=== PATIENT | female | born 1970 | race Caucasian/White ===

== ENCOUNTER 2016-12-09 15:54 | Emergency (ER) | payer OTHER ==
[~2016-12-09 15:54] MED LIST: Silver Nitrate Applicator Each ONE
[2016-12-09] MEDS ORDERED: Silver Nitrate Applicator Each TOP ONE (15:55)
[2016-12-09 16:06] VITALS: BP 126/78
--- NOTE | 2016-12-09 16:10 | EDM.PDOC ---
ED HPI Skin/Rash - General Chief Complaint: Laceration Stated Complaint: laceration Time Seen by Provider: 12/09/16 16:05 Source: Reports: Patient History Limitations: Reports: No limitations - History of Present Illness INITIAL COMMENTS - FREE TEXT/NARRATIVE: This patient is a 46 year old female that presents to the ER. Patient reports that she was using a slicer when she cut her right 4th digit today. She reports an avulsed area that that is not repairable that will not stop bleeding. There is partially missing nail of this digit. She reports applying direct pressure without success. Pulses +2, cap refill < 2sec, sensory/motor function intact. Neurovascular intact. Symptom Onset Date: 12/09/16 Symptom Onset Time: 12:30 Timing: Reports: still present Location, Skin: Reports: upper extremity, right Severity: mild Place of Occurrence: home Associated Symptoms: Reports: no other symptoms. Denies: confusion, headaches, seizure, shortness of breath, syncope, weakness, chest pain, cough, sputum, fever/chills, diaphoresis, malaise, loss of appetite, nausea/vomiting, rash - Related Data Allergies Allergy/AdvReac Type Severity Reaction Status Date / Time codeine Allergy Vomiting Verified 12/09/16 16:07 Penicillins Allergy Rash Verified 12/09/16 16:07 Home Meds: Ambulatory Orders Medication Instructions Recorded Confirmed Hydrochlorothiazide/Lisinopril 0.5 tab PO DAILY 12/09/16 12/09/16 [Lisinopril-HCTZ 20-25 MG] ED ROS GENERAL - Review of Systems Review Of Systems: See Below Constitutional: Reports: no symptoms HEENT: Reports: No symptoms Respiratory: Reports: no symptoms Cardiovascular: Reports: No symptoms Endocrine: Reports: no symptoms GI/Abdominal: Reports: No symptoms : Reports: no symptoms Musculoskeletal: Reports: no symptoms Skin: Reports: wound (Right ) Neurological: Reports: no symptoms Psychiatric: Reports: No symptoms Hematologic/Lymphatic: Reports: no symptoms Immunologic: Reports: no symptoms ED EXAM, SKIN/RASH Exam: See Below Exam Limited By: No limitations General Appearance: alert, WD/WN, no apparent distress Respiratory/Chest: no respiratory distress Cardiovascular: normal peripheral pulses Peripheral Pulses: 2+: radial (R) Extremities: normal range of motion, non-tender, no pedal edema, normal capillary refill Neurological: alert, oriented Psychiatric: normal affect, normal mood Skin: Warm, Dry, Normal color, No rash, Wound/incision Location, Skin: upper extremity, right Course - Vital Signs Last Recorded V/S: Last Vital Signs Temp 98.5 F 12/09/16 15:56 Pulse 90 12/09/16 15:56 Resp 20 12/09/16 15:56 BP 126/78 12/09/16 15:56 Pulse Ox 97 12/09/16 15:56 - Orders/Labs/Meds Meds: Medications Discontinued Medications Generic Name Dose Route Start Last Admin Trade Name Diana PRN Reason Stop Dose Admin Silver Nitrate Confirm 12/09/16 15:53 12/09/16 16:55 Silver Nitrate Administered 12/09/16 15:54 Not Given Dose 3 each .ROUTE .STK-MED ONE Silver Nitrate 3 each 12/09/16 15:55 12/09/16 15:58 Silver Nitrate TOP 12/09/16 15:56 3 each ONETIME ONE Administration - Re-Assessments/Exams Free Text/Narrative Re-Assessment/Exam: 12/09/16 16:28 Silver nitrate stick was used, this did slow bleeding, but not completely stop it. I then used Surgicil and put 2x2, then coban wrap. Bleeding controlled. Will discharge. Departure - Departure Time of Disposition: 16:20 Disposition: Home, Self-Care 01 Condition: good Clinical Impression: Avulsion, skin Instructions: Nail Bed Injury, [id number] Referrals: PCP,Unobtain [Primary Care Provider] - Forms: ED Department Discharge Additional Instructions: Followup with your primary care provider Return to the ER for worsening of condition or any emergent concerns If bleeding occurs, apply direct pressure May removed after 24 hours, if bleeding starts again, reapply dressing and apply pressure. - Assessment/Plan Plan: PLEASE SEE RN NOTE FOR PFSH.
== END 2016-12-09 16:35 | disposition home or self-care (01) ==
LOC: CC.ED 15:54
DX: S61.304A Unspecified open wound of right ring finger with damage to nail, initial encounter (principal); Z88.0 Allergy status to penicillin; Z88.5 Allergy status to narcotic agent; W26.8XXA Contact with other sharp object(s), not elsewhere classified, initial encounter; Y92.009 Unspecified place in unspecified non-institutional (private) residence as the place of occurrence of the external cause
CPT/HCPCS: 99282